=== PATIENT | male | born 1935 | race Caucasian/White ===

== ENCOUNTER 2020-09-17 16:11 | Emergency (ER) | payer MEDICARE, OTHER ==
[~2020-09-17 16:11] MED LIST: CYCLOBENZAPRINE10 MG PO; KEFLEX250 MG PO; NAPROSYN375 MG PO; NORCO 5-325 TA1 EACH PO; VENTOLIN HFA IN18 GM INH
[2020-09-17 18:08] LABS: BASOPHIL 1.2 % (0-2); EOSINOPHIL 3.5 % (0-7); HCT 42.1 % (42.0-52.0); HGB 14.3 g/dl (13.2-18.0); LYMPHOCYTE 20.3 % (15-48); MCV 88.4 fL (78.0-100.0); MONOCYTE 5.1 % (0-12); MPV 11.6 fL (6.0-9.5); NEUTROPHIL 69.6 % (41-80); NRBC 0; PLT 173 K/uL (150-400); RBC 4.76 M/uL (4.70-6.00); RDW 14.6 % (11.5-14.0); WBC 7.8 K/uL (4.0-10.5)
[2020-09-17 18:27] LABS: ALBUMIN 3.7 g/dL (3.4-5.0); BILIRUBIN - TOTAL 0.5 mg/dL (0.2-1.0); CREATININE 0.77 mg/dL (0.67-1.17); GLOBULIN (CALCULATION) 3.2 g/dL; TOTAL PROTEIN 6.9 g/dL (6.4-8.2)
[2020-09-17 19:13] LABS: BILIRUBIN NEGATIVE (NEGATIVE); BLOOD 1+ Ery/uL (NEGATIVE); CLARITY HAZY (CLEAR); COLOR YELLOW (YELLOW); GLUCOSE (U) NORMAL (NORMAL); LEUKOCYTES 3+ Leu/uL (NEGATIVE); NITRITE POSITIVE (NEGATIVE); PROTEIN NEGATIVE (NEGATIVE); UROBILINOGEN 0.2 mg/dL (0.2-1.0)
[2020-09-17 19:15] LABS: BACTERIA 3+; URINARY WBC 20-50
[2020-09-17 19:16] LABS: SQUAMOUS EPITHELIAL CELLS RARE
== END 2020-09-17 21:10 | disposition home or self-care (01) ==
LOC: FER 16:11
PROVIDERS: Emergency Medicine
DX: E11.649 Type 2 diabetes mellitus with hypoglycemia without coma (principal); I10 Essential (primary) hypertension
CPT/HCPCS: 36415; 71045; 80053; 81001; 84484; 85025; 93005